=== PATIENT | male | born 1955 | race Caucasian/White ===

== ENCOUNTER 2020-04-08 13:17 | Inpatient (IN) | payer MEDICARE ==
[~2020-04-08] VITALS: Ht 177.8 cm; Wt 99.8 kg
--- NOTE | 2020-04-08 13:17 | NUR ---
PT BIB SELF C/O COUGH/CONGESTION AND BILATERAL LOWER EXTREMITY EDEMA. PT IS AAOX4, NOT IN RESPIRATORY DISTRESS, HOOKED TO HAND PICKER AND O2 AT 2LPM VIA NC. KEPT RESTED AND COMFORTABLE. WILL CONTINUE TO MONITOR.
--- NOTE | 2020-04-08 14:20 | NUR ---
AT BEDSIDE FOR EVAL.
--- NOTE | 2020-04-08 14:30 | NUR ---
IV LINE ESTABLISHED BLOOD DRAWN AND SENT TO LAB.
--- NOTE | 2020-04-08 14:39 | NUR ---
CALLED LAB FOR COVID ANTIGEN KIT.
[2020-04-08 14:43] LABS: BASOPHILS % (AUTO) 0.5 % (0.0-2.0); EOSINOPHILS % (AUTO) 0.6 % (0.0-6.0); HEMATOCRIT 38 % (39-51); HEMOGLOBIN 11.9 g/dL (13.5-17.5); LYMPHOCYTES # (AUTO) 0.8 /CMM (0.8-4.8); LYMPHOCYTES % (AUTO) 12.8 % (20.0-44.0); MEAN CORPUSCULAR HGB CONC 32 g/dl (31.0-36.0); MEAN CORPUSCULAR VOLUME 89 fL (80-96); MONOCYTES # (AUTO) 0.8 /CMM (0.1-1.30); MONOCYTES % (AUTO) 11.6 % (2.0-12.0); NEUTROPHILS # (AUTO) 4.8 /CMM (1.8-8.9); NEUTROPHILS % (AUTO) 74.5 % (43.0-81.0); PLATELET COUNT (AUTO) 343 /CMM (150-450); RED BLOOD CELL COUNT(AUTO) 4.21 MIL/uL (4.5-6.0); WHITE BLOOD COUNT (AUTO) 6.5 K/uL (4.3-11.0)
--- NOTE | 2020-04-08 14:43 | NUR ---
TECH AT BEDSIDE FOR DUPLEX SCAN.
--- NOTE | 2020-04-08 14:52 | NUR ---
COVID SPECIMEN OBTAINED AND SENT TO LAB.
[2020-04-08 14:57] LABS: CALCIUM, SERUM 8.8 mg/dL (8.5-10.1); CREATININE 1.6 mg/dL (0.6-1.3); POTASSIUM 3.3 mmol/L (3.5-5.1)
[2020-04-08 15:09] LABS: ALBUMIN 3.1 g/dL (3.4-5.0); BILIRUBIN,DIRECT 0.4 mg/dL (0.0-0.2); BILIRUBIN,TOTAL 1.1 mg/dL (0.2-1.0); TOTAL PROTEIN, SERUM 7.7 g/dL (6.4-8.2)
--- NOTE | 2020-04-08 15:10 | NUR ---
COMMISSIONS COORDINATOR AT BEDSIDE FOR XRAY.
[2020-04-08 15:16] LABS: D-DIMER 2.11 mg/L(FEU (0.17-0.50)
[2020-04-08] MEDS ORDERED: FUROSEMIDE 40 MG/4 ML VIAL ONE ×2 (15:51→19:43)
[2020-04-08] MEDS ORDERED: POTASSIUM CHLORIDE 20 MEQ TAB.PRT.SR PO ONE (15:51)
[2020-04-08] MEDS ORDERED: POTASSIUM CHLORIDE 10 MEQ TABLET.SA ONE (15:53)
[2020-04-08] MEDS ORDERED: FUROSEMIDE 40 MG/4 ML VIAL IV ONE (16:00)
[2020-04-08] MEDS ORDERED: POTASSIUM CHLORIDE 10 MEQ TABLET.SA PO ONE (16:00)
--- NOTE | 2020-04-08 16:36 | NUR ---
CALLED HOUSE SUP FOR TELE BED
--- NOTE | 2020-04-08 16:51 | NUR ---
PT IS WHEELED TO RADIOLOGY FOR VQ SCAN.
--- NOTE | 2020-04-08 16:52 | NUR ---
room 326-2
[2020-04-08] MEDS ORDERED: METO-357 PO (17:00)
[2020-04-08] MEDS ORDERED: ASPI-1169 PO (17:00)
[2020-04-08] MEDS ORDERED: IBUP200C5 PO (17:00)
[2020-04-08] MEDS ORDERED: FURO-145 PO (17:00)
[2020-04-08] MEDS ORDERED: CARV25TA PO (17:00)
[2020-04-08] MEDS ORDERED: Z GUARD REMEDY 2 OZ OINT TP PRN (17:30)
[2020-04-08] MEDS ORDERED: HYDROCODONE/APAP 5/325MG TABLET PO PRN (17:30)
[2020-04-08] MEDS ORDERED: MAG HYDROX/AL HYDROX/SIMETH 30 ML UDC PO PRN (17:30)
[2020-04-08] MEDS ORDERED: ONDANSETRON HCL/PF 4 MG/2 ML VIAL IVP PRN (17:30)
--- NOTE | 2020-04-08 19:00 | NUR ---
RT AT BEDSIDE FOR ABG.
[2020-04-08] MEDS ORDERED: FUROSEMIDE 20 MG/2 ML VIAL ONE (19:15)
[2020-04-08] MEDS ORDERED: FUROSEMIDE 20 MG/2 ML VIAL IV SCH ×2 (19:30→20:00)
--- NOTE | 2020-04-08 19:36 | NUR ---
REPORT GIVEN TO CHRISTINE PAIZ FOR PAT.
--- NOTE | 2020-04-08 19:47 | NUR ---
PT WILL BE UPGRADED TO ICU; PT WILL BE ON BIPAP. PT SOB AFTER VQ SCAN. O2 SAT 91-92% ON 6L NC
[2020-04-08 20:00] LABS: ABG BASE EXCESS -2.4 mmol/L; ABG PCO2 37.3 mmHg (35.0-45.0); ABG PH 7.391 (7.350-7.450); ABG PO2 130.4 mmHg (75.0-100.0); AaDO2 400.8 mmHg; MetHb 0.3 % (0.0-1.5); O2Hb 96.7 % (94.0-97.0); SITE, ABG Right Radial; VENT MODE, BG 15L NRB
--- NOTE | 2020-04-08 20:29 | NUR ---
REPORT GIVEN TO BAL KING FOR PAT PT TRANSPORTED TO ICU VIA ACLS PROTOCOL
[2020-04-08 21:18] VITALS: BP 124/102
--- NOTE | 2020-04-08 21:30 | NUR ---
BOARD ATTENDANT NOTES GARDUNO CATHETER INSERTED WITH MINIMAL DIFFICULTY, NOTED WITH CLEAR YELLOW URINE VIA GRAVITY. WILL MONITOR CLOSELY
[2020-04-08 22:00] VITALS: BP 154/125
[2020-04-08 23:00] VITALS: BP 157/118
[2020-04-08 23:30] VITALS: BP 163/115
[2020-04-09] VITALS (30 sets, daily range): BP systolic 110–173; BP diastolic 62–127
--- NOTE | 2020-04-09 00:39 | NUR ---
RIB MATCHER AND FITTER NOTES BLOOD PRESSURE REMAINS ELEVATED, LATEST READING 166/114, PREVIOUSLY 173/127. PATIENT NOTED TO BE RESTING COMFORTABLY IN BED ON HI FLOW NC. DR ROBLES PAGED AND NOTIFIED REGARDING BLOOD PRESSURE, WITH NEW ORDER FOR HYDRALAZINE 10MG IV PUSH Q4HR PRN FOR SYSTOLIC BLOOD PRESSURE GREATER THAN 160. ORDER READ BACK FOR CLARIFICATION, WILL CARRY OUT NEW ORDERS
[2020-04-09] MEDS ORDERED: hydrALAZINE HCL IV 20 MG VIAL IV PRN (01:00)
[2020-04-09] MEDS: ZOLPIDEM TARTRATE 5 MG TABLET PO PRN ×2 (01:47→22:18)
[2020-04-09 04:00] LABS: BASOPHILS # (AUTO) 0.1 /CMM (0.0-0.2); BASOPHILS % (AUTO) 0.8 % (0.0-2.0); EOSINOPHILS % (AUTO) 0.2 % (0.0-6.0); HEMATOCRIT 38 % (39-51); HEMOGLOBIN 11.8 g/dL (13.5-17.5); LYMPHOCYTES # (AUTO) 0.8 /CMM (0.8-4.8); MEAN CORPUSCULAR HGB CONC 32 g/dl (31.0-36.0); MEAN CORPUSCULAR VOLUME 88 fL (80-96); MONOCYTES # (AUTO) 0.9 /CMM (0.1-1.30); MONOCYTES % (AUTO) 11.5 % (2.0-12.0); NEUTROPHILS # (AUTO) 6.2 /CMM (1.8-8.9); NEUTROPHILS % (AUTO) 77.5 % (43.0-81.0); PLATELET COUNT (AUTO) 340 /CMM (150-450); RED BLOOD CELL COUNT(AUTO) 4.27 MIL/uL (4.5-6.0)
[2020-04-09 04:10] LABS: CALCIUM, SERUM 8.3 mg/dL (8.5-10.1); CREATININE 1.3 mg/dL (0.6-1.3); PHOSPHORUS 3.6 mg/dL (2.5-4.9); POTASSIUM 3.3 mmol/L (3.5-5.1)
--- NOTE | 2020-04-09 07:26 | NUR ---
WOUND CARE CONSULT: PT SLEEPING AT THIS TIME. PER RN, PT NEEDS REST. REVIEWED CHART, NURSING DOCUMENTATION AND PHOTO WHICH INDICATES RT LOWER LEG SKIN TEAR, PRESENT ON ADMISSION. RECOMMENDATIONS MADE FOR WOUND CARE AND SKIN PROTECTION. DISCUSSED WITH NURSING STAFF. MD IN AGREEMENT WITH PLAN OF CARE.
--- NOTE | 2020-04-09 07:45 | NUR ---
ICU/RN: INITIAL NOTES,AM RECEIVED REPORT FROM NIGHT NURSE. PT SLEEPING, WAKES UP EASILY. TAKEN OFF HI-FLOW, PLACED ON 5LITERS NASAL CANULA, TOLERATING WELL, NO DISTRESS NOTED. SINUS/SINUS TACH ON TELE. PT ALERT, AWAKE, FOLLOWS COMMANDS. GARDUNO CATH IN PLACE, DRAINING YELLOW URINE. LEFT AC PIV PATENT AND INTACT, RIGHT HAND IV REMOVED BY PATIENT ACCIDENTALLY. PT ON CARDIAC DIET, FLUIDS RESTRICTED. ALL NEEDS WILL BE ATTENDED TO, SAFETY MEASURES TAKEN, BED IN LOW POSITION, SIDE RAILS UP, CALL LIGHT WITHIN REACH. WILL CONTINUE CARE.
[2020-04-09] MEDS: ASPIRIN 81 MG TAB.CHEW PO SCH (08:15)
[2020-04-09] MEDS: POTASSIUM CHLORIDE 20 MEQ TAB.PRT.SR PO SCH ×4 (08:15→13:20)
[2020-04-09] MEDS: ENOXAPARIN SODIUM 40 MG/0.4 ML DISP.SYRIN SQ SCH (08:16)
[2020-04-09] MEDS: FUROSEMIDE 40 MG/4 ML VIAL IV SCH ×3 (08:16→16:19)
[2020-04-09] MEDS: CARVEDILOL 12.5 MG TABLET PO SCH ×2 (08:19→22:17)
[2020-04-09 08:37] LABS: THYROID STIMULATING HORMONE 0.749 uIU/mL (0.358-3.74)
--- NOTE | 2020-04-09 14:00 | NUR ---
ICU/RN: REPORT ENDORSED TO CHRISTINE REDDY FOR CONTINUATION OF CARE. PT ALERT, AWAKE, ON 5LITERS NASAL CANULA. NO DISTRESS. ALL NEEDS ATTENDED TO, SAFETY MEASURES TAKEN, BED IN LOW POSITION, SIDE RAILS UP, CALL LIGHT WITHIN REACH.
--- NOTE | 2020-04-09 15:00 | NUR ---
UNIT SUPERVISOR NOTE PATIENT AWAKE, DENIES PAIN OR DISCOMFORT. DENIES SOB AT THIS TIME. ON 5LPM O2 VIA NC. TOLERATING WELL. STATES " I FEEL SO MUCH BETTER THAN YESTERDAY." LUNCH TRAY AT BEDSIDE. WILL CONTINUE TO MONITOR.
--- NOTE | 2020-04-09 16:15 | NUR ---
RUSSIAN LANGUAGE PROFESSOR NOTE SEEN AND EXAMINED BY DR ONEAL
[2020-04-09 18:21] LABS: CREATININE, URINE 81.8 MG/DL (30.0-125.0); URINE TOTAL PROTEIN 41.7 mg/dL (0-11.9)
[2020-04-09 18:25] LABS: APPEARANCE,URINE CLEAR (CLEAR); BILIRUBIN,URINE NEGATIVE (NEGATIVE); BLOOD, URINE LARGE Ery/uL (NEGATIVE); COLOR,URINE YELLOW (YELLOW); KETONES,URINE NEGATIVE (NEGATIVE); LEUKOCYTE ESTERASE ,URINE NEGATIVE (NEGATIVE); NITRITE, URINE NEGATIVE (NEGATIVE); PH,URINE 5.5 (5.0-8.0); PROTEIN,URINE TRACE mg/dl (NEGATIVE); UGLUCOSE NEGATIVE (NEGATIVE)
--- NOTE | 2020-04-09 18:34 | NUR ---
RASPER MACHINE OPERATOR CLOSING NOTE DUE MEDS GIVEN. PATIENT SITTING AT BEDSIDE CHAIR. PATIENT ABLE TO AMBULATE INDEPENDENTLY. CALL LIGHT WITHIN EASY REACH. PATIENT PROVIDED SELF ADLS AND BRUSHED HIS TEETH. LINENS CHANGED. NO C/O SOB. DENIES PAIN OR DISCOMFORT. WILL ENDORSE CONTINUITY OF CARE TO PM NURSE.
[2020-04-09 18:36] LABS: BACTERIA,URINE 1+ /HPF (None Seen); SQUAMOUS EPITHELIAL CELL,UR 0-2 /HPF (None Seen)
[2020-04-09 18:55] LABS: EOSINOPHIL,URINE None Seen
--- NOTE | 2020-04-09 19:30 | NUR ---
RN NOTES RECEIVE PATIENT SITTING ON THE BEDSIDE COMMODE. AOX4, VERBALY RESPONSIVE. WITH O2 5LPM VIA NC SATURATING WELL. DENIES SOB , EPISODE OF COUGHING STILL NOTED. AFEBRILE. VSS WITH NO PRESSORS. DEIES PAIN. SR ON TELE MONITOR. IV SITE ON LAC G 18 HL INTACT AND FLUSHED WELL. BLE EDEMA NOTED WITH SLIGHT WEAKNESSES DUE TO SWOLLEN LEGS. GARDUNO CATH KEPT OFF FROM THE FLOOR DRAINED VIA GRAVITY WITH ADEQ AMT. PATIENT IS BEEN TAKING LASIX DUE TO CHF. KEPT PT CLEAN AND DRY. MINIMAL ASSISTANCE PROVIDED FOR SAFETY. CALL LIGHT KEPT WITHIN EASY REACH. INSTRUCTION HOW TO USED PROVIDED. WILL CONTINUE TO MONITOR.
[2020-04-10] VITALS (15 sets, daily range): BP systolic 91–146; BP diastolic 29–92
[2020-04-10 03:56] LABS: BASOPHILS % (AUTO) 0.6 % (0.0-2.0); HEMATOCRIT 35 % (39-51); HEMOGLOBIN 10.9 g/dL (13.5-17.5); LYMPHOCYTES # (AUTO) 0.7 /CMM (0.8-4.8); LYMPHOCYTES % (AUTO) 8.7 % (20.0-44.0); MEAN CORPUSCULAR HGB CONC 31 g/dl (31.0-36.0); MEAN CORPUSCULAR VOLUME 89 fL (80-96); MONOCYTES # (AUTO) 1.1 /CMM (0.1-1.30); MONOCYTES % (AUTO) 12.9 % (2.0-12.0); NEUTROPHILS # (AUTO) 6.4 /CMM (1.8-8.9); NEUTROPHILS % (AUTO) 75.8 % (43.0-81.0); PLATELET COUNT (AUTO) 295 /CMM (150-450); RED BLOOD CELL COUNT(AUTO) 3.92 MIL/uL (4.5-6.0); WHITE BLOOD COUNT (AUTO) 8.4 K/uL (4.3-11.0)
[2020-04-10 04:12] LABS: ALBUMIN 2.4 g/dL (3.4-5.0); BILIRUBIN,TOTAL 0.7 mg/dL (0.2-1.0); CALCIUM, SERUM 8.2 mg/dL (8.5-10.1); CREATININE 1.5 mg/dL (0.6-1.3); PHOSPHORUS 3.1 mg/dL (2.5-4.9); POTASSIUM 3.6 mmol/L (3.5-5.1); TOTAL PROTEIN, SERUM 6.3 g/dL (6.4-8.2)
--- NOTE | 2020-04-10 06:39 | NUR ---
RN NOTES PATIENT ASLEEP WELL AT NIGHT TOLERATED O2 @ 5LPM VIA NC SATURATING WELL SATURATION 98%. AFEBRILE. VSS WITHOUT PRESSORS. BREATHING EVEN AND UNLABORED, DENIES PAIN. WITH ADEQUATE URINE OUTPUT FROM GARDUNO.ALL NEEDS ATTENDED. KEPT PT CLEAN AND DRY.
--- NOTE | 2020-04-10 07:55 | NUR ---
ICU/RN: INITIAL NOTES,AM RECEIVED REPORT FROM NIGHT NURSE. PT AWAKE, ALERT, FOLLOWING COMMANDS. ON NASAL CANULA, TOLERATING WELL, NO DISTRESS NOTED. SINUS ON TELE. GARDUNO CATH IN PLACE, DRAINING YELLOW URINE. LEFT AC PIV PATENT AND INTACT. PT ON CARDIAC DIET, FLUIDS RESTRICTED. ALL NEEDS WILL BE ATTENDED TO, SAFETY MEASURES TAKEN, BED IN LOW POSITION, SIDE RAILS UP, CALL LIGHT WITHIN REACH. WILL CONTINUE CARE. DOWNGRADE ORDERS RECEIVED. PT SITTING COMFORTABLY ON BEDSIDE CHAIR.
[2020-04-10] MEDS: ASPIRIN 81 MG TAB.CHEW PO SCH (08:17)
[2020-04-10] MEDS: CARVEDILOL 12.5 MG TABLET PO SCH ×2 (08:17→21:47)
[2020-04-10] MEDS: ENOXAPARIN SODIUM 40 MG/0.4 ML DISP.SYRIN SQ SCH (08:18)
[2020-04-10] MEDS: FUROSEMIDE 40 MG/4 ML VIAL IV SCH ×3 (08:20→17:50)
[2020-04-10] MEDS: hydrALAZINE HCL 50 MG TABLET PO SCH ×3 (08:21→18:23)
[2020-04-10] MEDS: POTASSIUM CHLORIDE 20 MEQ TAB.PRT.SR PO SCH ×3 (08:35→11:27)
[2020-04-10] MEDS: ISOSORBIDE DINITRATE (20MG) 20 MG TABLET PO SCH ×2 (08:36→11:24)
--- NOTE | 2020-04-10 12:45 | NUR ---
ICU/RN: PT TRANSFERRED TO [facility]. BEDSIDE REPORT ENDORSED TO RENETTA RN. ALL BELONGINGS SENT WITH PT. ALL NEEDS ATTENDED TO, SAFETY MEASURES TAKEN, BED IN LOW POSITION, SIDE RAILS UP, CALL LIGHT WITHIN REACH. GARDUNO CATH IN PLACE, DRAINING YELLOW URINE.
--- NOTE | 2020-04-10 13:00 | NUR ---
ms rn received a new transfer from icu, patient is awake,alert,oriented x4,not in any form of distress, respirations even and unlabored,no sob noted, lungs are clear, abdomen soft,positive bowel sounds,denies pain at this time,will monitor patient.
--- NOTE | 2020-04-10 13:30 | NUR ---
ms woody was seen by marion gaona w/ orders made and carried out.
[2020-04-10] MEDS: SOD FERRIC GLUC 125 MG in IV NS 0.9% 100 ML IV SCH (15:14)
--- NOTE | 2020-04-10 17:58 | NUR ---
ms mckay on bed, w/ orders made and carried out.
--- NOTE | 2020-04-10 18:38 | NUR ---
ms rn patient's room change to 320-1, at this time.
--- NOTE | 2020-04-10 20:00 | NUR ---
MICROSOFT DEVELOPER OPENING NOTE: Patient in bed, awake and alert. Make needs known. Patient denies pain or discomfort at this time. On cardiac monitoring, sinus rhythm, IV Access on LAC 18g, patent, no redness, or infiltration. Chapa catheter noted, patient, draining clear yellow output. Safety precaution in place, bed in the lowest level, bed is locked, alarm is on, side rails x2 are up, and call light is within reach. Will continue to monitor.
[2020-04-10] MEDS: ZOLPIDEM TARTRATE 5 MG TABLET PO PRN (23:56)
--- NOTE | 2020-04-10 23:56 | NUR ---
DOCUMENT PREPARATION SPECIALIST NOTE: Patient complains of not being able to sleep. Administered PRN Ambien per MD order. Will reassess and follow up.
[2020-04-11] VITALS (7 sets, daily range): BP systolic 106–144; BP diastolic 60–96
--- NOTE | 2020-04-11 00:56 | NUR ---
VP LAB NOTE: Reassess ambien administration. Patient in bed sleeping comfortably. Medication effective. Will continue to monitor.
[2020-04-11 05:08] LABS: PTH, INTACT 61 pg/mL (15-65)
--- NOTE | 2020-04-11 06:30 | NUR ---
RESIDENTIAL LAWN SPECIALIST CLOSING NOTE: Patient in bed sleeping comfortably but easily aroused. Patient is breathing well, no SOB, or respiratory distress noted. Safety precaution in place, bed in the lowest level, bed is locked, alarm is on, side rails x2 are up, and call light is within reach. Will Endorse to next shift.
[2020-04-11 07:35] LABS: BASOPHILS % (AUTO) 0.6 % (0.0-2.0); EOSINOPHILS % (AUTO) 3.1 % (0.0-6.0); HEMATOCRIT 38 % (39-51); HEMOGLOBIN 11.7 g/dL (13.5-17.5); LYMPHOCYTES # (AUTO) 0.7 /CMM (0.8-4.8); LYMPHOCYTES % (AUTO) 9.1 % (20.0-44.0); MEAN CORPUSCULAR HGB CONC 31 g/dl (31.0-36.0); MEAN CORPUSCULAR VOLUME 89 fL (80-96); NEUTROPHILS # (AUTO) 5.9 /CMM (1.8-8.9); NEUTROPHILS % (AUTO) 74.2 % (43.0-81.0); PLATELET COUNT (AUTO) 318 /CMM (150-450); RED BLOOD CELL COUNT(AUTO) 4.27 MIL/uL (4.5-6.0); WHITE BLOOD COUNT (AUTO) 7.9 K/uL (4.3-11.0)
[2020-04-11 07:56] LABS: ALBUMIN 2.7 g/dL (3.4-5.0); BILIRUBIN,TOTAL 0.6 mg/dL (0.2-1.0); CALCIUM, SERUM 8.6 mg/dL (8.5-10.1); CREATININE 1.4 mg/dL (0.6-1.3); MAGNESIUM 2.1 mg/dL (1.8-2.4); PHOSPHORUS 2.6 mg/dL (2.5-4.9); POTASSIUM 3.5 mmol/L (3.5-5.1); TOTAL PROTEIN, SERUM 7.3 g/dL (6.4-8.2)
--- NOTE | 2020-04-11 08:00 | NUR ---
tele air cargo specialist supervisor: initial assessment received pt in bed awake, a/ox4. pt c/o balderas catheter bothering him. assessed cath, no obstruction noted. f/c draining well to gravity. will continue to monitor.
[2020-04-11] MEDS: ASPIRIN 81 MG TAB.CHEW PO SCH (08:17)
[2020-04-11] MEDS: ISOSORBIDE DINITRATE (20MG) 20 MG TABLET PO SCH ×2 (08:19→16:52)
[2020-04-11] MEDS: CARVEDILOL 12.5 MG TABLET PO SCH ×2 (08:19→21:29)
[2020-04-11] MEDS: ENOXAPARIN SODIUM 40 MG/0.4 ML DISP.SYRIN SQ SCH (08:20)
[2020-04-11] MEDS: hydrALAZINE HCL 50 MG TABLET PO SCH ×3 (08:20→16:52)
[2020-04-11] MEDS ORDERED: NITROGLYCERIN 0.4 MG/TAB BOTTLE SL ONE (09:00)
--- NOTE | 2020-04-11 09:15 | NUR ---
tele king maker: notes pt still verbalizing his balderas catheter is bothering, pt keeps pushing. marion tovar (acnp) notified and made aware with order to d'c balderas. pt made aware and removed balderas catheter, eliceo well. pt voided after balderas cath removed. pt had an accident (bowel movement) in bed. kept clean and dry by doctor of dental surgery. will continue to monitor.
[2020-04-11] MEDS ORDERED: IOHEXOL-350 100 ML VIAL IV ONE (09:29)
[2020-04-11] MEDS ORDERED: IV NS 0.9% 250 ML IV ONE (09:30)
--- NOTE | 2020-04-11 09:30 | NUR ---
tele film historian: cardio f/u seen by dr. duron with orders. orders acknowledge. iv removed to left ac due to leaking. attempted to insert new one, but unsuccessful. claudine (rn) made aware and will pick up and delivery driver pt in a few minutes for ct angio. pt made aware and consent signed and place in chart. pt verbalized understanding.
--- NOTE | 2020-04-11 09:40 | NUR ---
tele wood web weaving machine operator: notes tele removed, pt down for ct angio accompanied by 2 staff via wheelchair with chart and consent.
[2020-04-11] MEDS ORDERED: METOPROLOL TARTRATE INJ 5 MG/5 ML AMPUL ONE ×2 (09:56→10:22)
[2020-04-11] MEDS: POTASSIUM CHLORIDE 20 MEQ TAB.PRT.SR PO SCH ×5 (10:00→13:54)
[2020-04-11] MEDS: METOPROLOL TARTRATE INJ 5 MG/5 ML AMPUL IVP PRN ×5 (10:00→10:20)
--- NOTE | 2020-04-11 10:14 | NUR ---
WOUND CARE: ATTEMPTED TO SEE PT FOR SKIN ASSESSMENT BUT PT IS OFF UNIT AT THIS TIME. DISCUSSED SKIN PROTECTION AND WOUND CARE RECOMMENDATIONS WITH NURSING STAFF. WILL SEE PT PT CONDITION PERMITS.
[2020-04-11] MEDS: FUROSEMIDE 40 MG/4 ML VIAL IV SCH ×3 (11:17→17:07)
--- NOTE | 2020-04-11 12:22 | NUR ---
m/s refueling ramp supervisor: notes kdur 20meq dropped from [employer], pharmacist notified and made aware and will re-insert.
[2020-04-11 14:08] LABS: *SPE A/G RATIO 0.9 (0.7-1.7); *SPE ALBUMIN 2.8 g/dL (2.9-4.4); *SPE ALPHA-1-GLOBULIN 0.2 g/dL (0.0-0.4); *SPE ALPHA-2-GLOBULIN 0.6 g/dL (0.4-1.0); *SPE GLOBULIN, TOTAL 3.1 g/dL (2.2-3.9); *SPE M-SPIKE Not Observed g/dL (Not Observed); *SPEGAMMA GLOBULIN 1.4 g/dL (0.4-1.8)
[2020-04-11] MEDS: SOD FERRIC GLUC 125 MG in IV NS 0.9% 100 ML IV SCH (14:21)
--- NOTE | 2020-04-11 18:30 | NUR ---
tele septic technician: vascular consult seen by dr. miller with order to obtain consent for icd. pt aware, but wants to discuss procedure more with dr. miller tomorrow. pt doesn't want to sign at this time. needs attended. no distress noted. will continue to monitor.
--- NOTE | 2020-04-11 19:10 | NUR ---
tele press feeder: notes report given to mann (woody) for continuity of care.
--- NOTE | 2020-04-11 20:55 | NUR ---
MS/TELE/RN AT 1930, RECEIVED PATIENT SITTING AT EDGE OF BED AO X 4, COMFORTABLE, NO C/O PAIN, NO DISTRESS NOTED. PLAN OF CARE DISCUSSED, RE: ICD PLACEMENT IN A.M., DOES NOT WANT TO SIGN THE CONSENT AT THIS TIME HE WANTS TO TALK TO THE DOCTOR FIRST BEFORE SIGNING THE CONSENT. WILL MONITOR.
[2020-04-12] VITALS (7 sets, daily range): BP systolic 107–145; BP diastolic 68–103
--- NOTE | 2020-04-12 06:09 | NUR ---
MS/TELE/RN PATIENT IS SLEEPING, APPEAR COMFORTABLE, NO SIGNS OF DISTRESS NOTED, CALL LIGHT IN REACH, NPO POST MIDNIGHT FOR ICD PLACEMENT TODAY, GOOD SLEEP NOTED, THE WHOLE SHIFT, ALL NEEDS ATTENDED AT THIS TIME, WILL CONTINUE TO MONITOR.
[2020-04-12 06:21] LABS: BASOPHILS # (AUTO) 0.1 /CMM (0.0-0.2); BASOPHILS % (AUTO) 0.9 % (0.0-2.0); EOSINOPHILS % (AUTO) 2.1 % (0.0-6.0); HEMATOCRIT 34 % (39-51); HEMOGLOBIN 10.5 g/dL (13.5-17.5); LYMPHOCYTES # (AUTO) 0.6 /CMM (0.8-4.8); LYMPHOCYTES % (AUTO) 9.5 % (20.0-44.0); MEAN CORPUSCULAR HGB CONC 31 g/dl (31.0-36.0); MEAN CORPUSCULAR VOLUME 89 fL (80-96); MONOCYTES % (AUTO) 15.4 % (2.0-12.0); NEUTROPHILS # (AUTO) 4.8 /CMM (1.8-8.9); NEUTROPHILS % (AUTO) 72.1 % (43.0-81.0); PLATELET COUNT (AUTO) 289 /CMM (150-450); RED BLOOD CELL COUNT(AUTO) 3.81 MIL/uL (4.5-6.0); WHITE BLOOD COUNT (AUTO) 6.7 K/uL (4.3-11.0)
[2020-04-12 07:22] LABS: ALBUMIN 2.5 g/dL (3.4-5.0); BILIRUBIN,TOTAL 0.6 mg/dL (0.2-1.0); CALCIUM, SERUM 8.3 mg/dL (8.5-10.1); CREATININE 1.3 mg/dL (0.6-1.3); MAGNESIUM 2.1 mg/dL (1.8-2.4); PHOSPHORUS 2.7 mg/dL (2.5-4.9); POTASSIUM 3.5 mmol/L (3.5-5.1); TOTAL PROTEIN, SERUM 6.6 g/dL (6.4-8.2)
--- NOTE | 2020-04-12 07:35 | NUR ---
WAREHOUSE GUARD NOTES RECEIVED PT IN BED, AWAKE, A/O X4. TOLERATING RA, WITH NO ACUTE RESPIRATORY DISTRESS NOTED. PT ON TELEMONITORING WITH SR 87, DENIES CHEST PAIN. PT DENIES ANY PAIN AT THIS TIME, BUT CONCERNED ABOUT HIS PHLEM BEING EXPECTORATED, RN PROVIDED EMESIS BAG. PT AWARE REGARDING ICD PLACEMENT WITH DR. PATEL TODAY, BUT PREFERS TO TALK TO THE MD BEFORE SIGNING CONSENTS, WILL FOLLOW UP WITH MD. PT DENIES ANY OTHER CONCERNS AT THIS TIME. PIV LAC G18, FLUSHED WITH NS, INTACT AND OPERATIONAL. PT KEPT COMFORTABLE IN BED. HOB ELEVATED. CALL LIGHT KEPT WITHIN REACH. PT'S BED IN LOWEST, LOCKED POSITION WITH SR X2. WILL CONTINUE PLAN OF CARE.
[2020-04-12] MEDS: POTASSIUM CHLORIDE 20 MEQ TAB.PRT.SR PO SCH ×3 (08:00→11:01)
[2020-04-12] MEDS: ENOXAPARIN SODIUM 40 MG/0.4 ML DISP.SYRIN SQ SCH (08:00)
[2020-04-12] MEDS: FUROSEMIDE 40 MG/4 ML VIAL IV SCH ×3 (08:00→16:41)
[2020-04-12] MEDS ORDERED: LIDOCAINE 1% INJ 50 ML MDV IJ ONE (08:40)
[2020-04-12] MEDS ORDERED: IOHEXOL 240MG/ML 0 ML IV ONE (08:41)
[2020-04-12] MEDS ORDERED: ANESTHESIA TRAY IN PYXIS 1 EA TRAY MC ONE (08:41)
--- NOTE | 2020-04-12 08:53 | NUR ---
RN NOTES RN VERIFIED WITH RENZO KING AND INFORMED REGARDING CURRENT BP OF 145/103 HR 86, TO SKIP MORNING MEDICINES INCLUDING BP MEDS AND ONE TIME DOSE LASIX IV. AAND TO PUT PT DOWN NOW. PT MADE AWARE WELL.
[2020-04-12] MEDS ORDERED: BUPIVACAINE 0.25% 75 MG/30 ML VIAL ONE (08:55)
[2020-04-12] MEDS ORDERED: MIDAZOLAM HCL 2 MG/2ML VIAL ONE (08:56)
[2020-04-12] MEDS ORDERED: KETAMINE HCL (500MG/10ML) 50 MG/ML VIAL ONE (08:56)
[2020-04-12] MEDS ORDERED: FLUMAZENIL 0.5 MG VIAL ONE (08:57)
--- NOTE | 2020-04-12 08:59 | NUR ---
RN NOTES PT LEFT THE UNIT VIA BED GOING TO OR. RENZO/RN AT BEDSIDE STATED OKAY TO GIVE ALL MORNING MEDS WHEN PT COMES BACK. ALSO ANESTHESIOLOGIST AWARE OF PT'S CURRENT BP.
[2020-04-12] MEDS: hydrALAZINE HCL 50 MG TABLET PO SCH ×3 (09:00→16:41)
--- NOTE | 2020-04-12 10:50 | NUR ---
RN NOTES PT CAME BACK FROM ICD PLACEMENT PROCEDURE WITH DR. PATEL. VS TAKEN AND RECORDED. PT DENIES ANY PAIN OR DISCOMFORT AT THIS TIME. WILL CONTINUE TO MONITOR.
[2020-04-12] MEDS: ISOSORBIDE DINITRATE (20MG) 20 MG TABLET PO SCH ×2 (10:59→16:42)
[2020-04-12] MEDS: CARVEDILOL 12.5 MG TABLET PO SCH ×2 (11:00→21:16)
[2020-04-12] MEDS: ASPIRIN 81 MG TAB.CHEW PO SCH (11:00)
--- NOTE | 2020-04-12 11:40 | NUR ---
RN NOTES UNABLE TO GIVE KCL 20MEQ DOSE AT 10AM, PT WAS IN THE PROCEDURE WITH DR. FORD. MISSED DOSE RE-ORDERED. WILL CONTINUE TO MONITOR.
[2020-04-12] MEDS ORDERED: POTASSIUM CHLORIDE 20 MEQ TAB.PRT.SR PO ONE (12:00)
[2020-04-12] MEDS: SOD FERRIC GLUC 125 MG in IV NS 0.9% 100 ML IV SCH (15:10)
--- NOTE | 2020-04-12 18:34 | NUR ---
RN NOTES PT REMAINS IN BED, AWAKE, A/O X4. TOLERATING RA, WITH NO ACUTE RESPIRATORY DISTRESS NOTED. PT DENIES ANY PAIN OR DISCOMFORT AT THIS TIME. PIV RHAND G20 SL, FLUSHED WITH NS, INTACT AND OPERATIONAL. PT KEPT COMFORTABLE IN BED. ALL NEEDS AND CARE ATTENDED. HOB ELEVATED. CALL LIGHT KEPT WITHIN REACH. PT'S BED IN LOWEST, LOCKED POSITION WITH SR X2. WILL ENDORSE TO INCOMING NIGHT NURSE FOR PAT.
--- NOTE | 2020-04-12 19:30 | NUR ---
LICENSE REGISTRATION EXAMINER RECEIVE PT IN BED A/O X 4, SR 90. STABLE AND NOT IN RESPIRATORY DISTRESS, NO CHEST PAIN, SAFETY MEASURES AT ALL TIMES. WILL CONT TO MONITOR
[2020-04-12] MEDS: MAGNESIUM HYDROXIDE 30 ML UDC PO PRN (21:20)
[2020-04-13] VITALS: BP 119/80
[2020-04-13] MEDS: ZOLPIDEM TARTRATE 5 MG TABLET PO PRN (01:56)
[2020-04-13 04:00] VITALS: BP 133/85
--- NOTE | 2020-04-13 05:57 | NUR ---
SENIOR EXECUTIVE COMPENSATION ANALYST PT WALKING IN THE HALLWAY WITHOUT DIFFICULTY, IN NO APPARENT DISTRESS, SLEPT WELL 8 HOURS. SR 84'S HR IN TELE MONITOR, NO COMPLAIN OF CHEST PAIN, NEEDS ATTENDED AND ANTICIPATED, KEPT CLEAN, DRY AND COMFORTABLE AT ALL TIMES. AM CARE RENDERED, S/P ICD (LUCW) DRESSING INTACT CLEAN WITHOUT S/S OF BLEEDING. SAFETY MEASURES IN PLACE. WILL ENDORSE TO NEXT SHIFT.
[2020-04-13 07:23] LABS: BASOPHILS # (AUTO) 0.1 /CMM (0.0-0.2); BASOPHILS % (AUTO) 1.1 % (0.0-2.0); EOSINOPHILS % (AUTO) 1.5 % (0.0-6.0); HEMATOCRIT 33 % (39-51); HEMOGLOBIN 10.5 g/dL (13.5-17.5); LYMPHOCYTES # (AUTO) 0.6 /CMM (0.8-4.8); LYMPHOCYTES % (AUTO) 9.5 % (20.0-44.0); MEAN CORPUSCULAR HGB CONC 32 g/dl (31.0-36.0); MEAN CORPUSCULAR VOLUME 88 fL (80-96); MONOCYTES % (AUTO) 14.3 % (2.0-12.0); NEUTROPHILS # (AUTO) 4.9 /CMM (1.8-8.9); NEUTROPHILS % (AUTO) 73.6 % (43.0-81.0); PLATELET COUNT (AUTO) 287 /CMM (150-450); RED BLOOD CELL COUNT(AUTO) 3.78 MIL/uL (4.5-6.0); WHITE BLOOD COUNT (AUTO) 6.6 K/uL (4.3-11.0)
--- NOTE | 2020-04-13 07:43 | NUR ---
Patient awake , alert and oriented x3. NSR on tele, HR 89. ICD dressing intact and patent . Patient denies pain. On room air saturation above 95%. Safety precautions in place and call light within reach. Will continue to monitor
[2020-04-13 08:00] VITALS: BP 120/84
[2020-04-13 08:15] LABS: ALBUMIN 2.6 g/dL (3.4-5.0); BILIRUBIN,TOTAL 0.5 mg/dL (0.2-1.0); CALCIUM, SERUM 8.1 mg/dL (8.5-10.1); CREATININE 1.6 mg/dL (0.6-1.3); MAGNESIUM 2.2 mg/dL (1.8-2.4); PHOSPHORUS 3.1 mg/dL (2.5-4.9); POTASSIUM 3.9 mmol/L (3.5-5.1); TOTAL PROTEIN, SERUM 6.8 g/dL (6.4-8.2)
[2020-04-13 08:19] VITALS: BP 120/84
[2020-04-13] MEDS: FUROSEMIDE 40 MG TABLET PO SCH (08:24)
[2020-04-13] MEDS: ISOSORBIDE DINITRATE (20MG) 20 MG TABLET PO SCH ×2 (08:24→16:28)
[2020-04-13] MEDS: ASPIRIN 81 MG TAB.CHEW PO SCH (08:24)
[2020-04-13] MEDS: POTASSIUM CHLORIDE 20 MEQ TAB.PRT.SR PO SCH (08:24)
[2020-04-13] MEDS: CARVEDILOL 12.5 MG TABLET PO SCH ×2 (08:25→20:52)
[2020-04-13] MEDS: hydrALAZINE HCL 50 MG TABLET PO SCH ×2 (08:26→16:27)
[2020-04-13] MEDS: ACETAMINOPHEN 325 MG TABLET PO PRN ×2 (08:28→19:46)
[2020-04-13] MEDS: ENOXAPARIN SODIUM 40 MG/0.4 ML DISP.SYRIN SQ SCH (08:33)
--- NOTE | 2020-04-13 09:10 | NUR ---
Patient awake , alert and oriented x3. NSR on tele, HR 90. No SOB noted. Patient complain of headache 4/10 and Tylenol administrated. will continue to monitor.
--- NOTE | 2020-04-13 12:13 | NUR ---
Patient noted with mild SOB. Lien BUILDING PERFORMANCE SPECIALIST notified
[2020-04-13] MEDS ORDERED: FUROSEMIDE 40 MG/4 ML VIAL IV ONE (13:00)
[2020-04-13] MEDS: SOD FERRIC GLUC 125 MG in IV NS 0.9% 100 ML IV SCH (14:13)
[2020-04-13 16:00] VITALS: BP 146/100
--- NOTE | 2020-04-13 16:10 | NUR ---
Patient walking around nursing station w/out oxygen and pulse oximetry on. Mild SOB noted , oxygenation dropping to 94%. At rest oxygenation on room air is 97%. Lien RIGGNIS notified
[2020-04-13 16:28] VITALS: BP 146/100
[2020-04-13] MEDS: MAGNESIUM HYDROXIDE 30 ML UDC PO PRN (18:36)
--- NOTE | 2020-04-13 18:48 | NUR ---
Patient resting in bed , on room air at this time tolerating well. All needs attended. Patient kept comfortable at all times. Safety precautions in place, call light within reach. Will endorse to next shift nurse for PAT
--- NOTE | 2020-04-13 19:45 | NUR ---
MS RN NOTES PATIENT IN BED, LAYING DOWN, ALERT AND ORIENTED X 4. BREATHING EVEN AND UNLABORED ON 2L NC. SHOWS NO SIGNS OF ACUTE RESPIRATORY DISTRESS, NO ACUTE PAIN. IV ON R HAND 20G ITS CLEAN DRY AND INTACT. SHOWS NO SIGNS OF INFILTRATION, NO REDNESS. SAFETY PRECAUTIONS IN PLACE. BED IN LOWEST POSITION, LOCKED, AND CALL LIGHT KEPT WITHIN REACH. WILL CONTINUE TO MONITOR.
[2020-04-14] MEDS: ACETAMINOPHEN 325 MG TABLET PO PRN (02:26)
--- NOTE | 2020-04-14 06:47 | NUR ---
MS RN NOTES PATIENT IN BED, ASLEEP, ALERT AND ORIENTED X 4. BREATHING EVEN AND UNLABORED ON 2L NC. SHOWS NO SIGNS OF ACUTE RESPIRATORY DISTRESS, NO ACUTE PAIN. IV ON R HAND 20G ITS CLEAN DRY AND INTACT. SHOWS NO SIGNS OF INFILTRATION, NO REDNESS. SAFETY PRECAUTIONS IN PLACE. ALL DUE MEDICATIONS GIVEN. BED IN LOWEST POSITION, LOCKED, AND CALL LIGHT KEPT WITHIN REACH. WILL ENDORSE TO ONCOMING NURSE.
[2020-04-14 07:02] LABS: CALCIUM, SERUM 8.6 mg/dL (8.5-10.1); CREATININE 1.2 mg/dL (0.6-1.3); POTASSIUM 3.7 mmol/L (3.5-5.1)
--- NOTE | 2020-04-14 08:00 | NUR ---
MS RN NOTES PATIENT IN BED RESTING NO SOB OR ACUTE DISTRESS NOTED. PATIENT ALERT, ORIENTED X3. PERIPHERAL IV INTACT PATENT. SAFETY MEASURES IN PLACE. WILL CONTINUE TO MONITOR.
[2020-04-14] MEDS: ASPIRIN 81 MG TAB.CHEW PO SCH (08:46)
[2020-04-14] MEDS: FUROSEMIDE 40 MG TABLET PO SCH (08:46)
[2020-04-14] MEDS: CARVEDILOL 12.5 MG TABLET PO SCH ×2 (08:47→21:00)
[2020-04-14] MEDS: ISOSORBIDE DINITRATE (20MG) 20 MG TABLET PO SCH ×2 (08:47→16:52)
[2020-04-14] MEDS: POTASSIUM CHLORIDE 20 MEQ TAB.PRT.SR PO SCH (08:47)
[2020-04-14] MEDS: hydrALAZINE HCL 50 MG TABLET PO SCH ×2 (08:48→16:52)
[2020-04-14] MEDS: ENOXAPARIN SODIUM 40 MG/0.4 ML DISP.SYRIN SQ SCH (08:51)
[2020-04-14 08:52] VITALS: BP 144/100
--- NOTE | 2020-04-14 13:00 | NUR ---
MS RN NOTES PATIENT ON ROOM AIR SATURATING 96%.
[2020-04-14] MEDS: DOCUSATE SODIUM 100 MG CAPSULE PO SCH ×2 (13:07→21:29)
--- NOTE | 2020-04-14 14:00 | NUR ---
MS RN NOTES PATIENT SEEN AMBULATING IN THE HALLWAY ON ROOM AIR.
[2020-04-14] MEDS: SOD FERRIC GLUC 125 MG in IV NS 0.9% 100 ML IV SCH (15:06)
--- NOTE | 2020-04-14 15:07 | NUR ---
MS RN NOTES PROVIDED PATIENT WITH INFORMATION OF DR. FORD AND DR. CABRAL FOR FOLLOW UP APPOINTMENT.
[2020-04-14 16:59] VITALS: BP 127/90
--- NOTE | 2020-04-14 18:49 | NUR ---
MS RN NOTES PATIENT IN BED AWAKE IN STABLE CONDITION. NO ACUTE CHANGES NOTED DURING AM SHIFT. ALL DUE MEDICATIONS ADMINISTERED. ALL NEEDS MET. WILL ENDORSE CARE TO PM SHIFT.
[2020-04-14 20:00] VITALS: BP 113/69
--- NOTE | 2020-04-14 20:00 | NUR ---
MS RN NOTE: Patient in bed sleeping comfortably. Patient is currently on room air and breathing well. NO SOB or respiratory distress is noted. Breathing equal and unlabored. PRN 2L nasal canula on side of bed. Noted IV access on right hand, 20g, flushes well, patent, no redness, or infiltration. S/P ICD on left upper chest wall, dressing is dry and intact. Safety precaution is in place, bed is in the lowest level, bed is locked, alarm is on, side rails x2 are up, and call light is within reach. Will continue to monitor.
--- NOTE | 2020-04-14 21:31 | NUR ---
MS RN NOTE: Patient BP 113/69, hold medication to prevent hypotension episode. Will continue to monitor.
--- NOTE | 2020-04-15 06:50 | NUR ---
MS RN CLOSING NOTE: Patient in bed sleeping comfortably. No SOB or respiratory distress noted. Safety precaution is in place, bed is in the lowest level, bed is locked, side rails x2 are up, and call light is within reach. Will endorse to next shift.
--- NOTE | 2020-04-15 07:30 | NUR ---
MS/RN OPENING NOTES Received patient resting in bed, A&O x 4. Denies any pain and discomfort at this time. Breathing even and non-labored on RA, no SOB noted. No respiratory or cardiac distress noted. IV access on R hand #20 gauge, patent and intact, and flushing well. No infection, infiltration, or bleeding noted on site. Sensation from all peripheral extremities intact. Fall precautions maintained. Instructed pt to use call light when in need of assistance. 800 ml fluid restriction maintained. Will continue with current plan of care.
[2020-04-15 08:00] VITALS: BP 148/97
[2020-04-15] MEDS: ASPIRIN 81 MG TAB.CHEW PO SCH (08:37)
[2020-04-15] MEDS: DOCUSATE SODIUM 100 MG CAPSULE PO SCH (08:38)
[2020-04-15] MEDS: FUROSEMIDE 40 MG TABLET PO SCH (08:38)
[2020-04-15] MEDS: POTASSIUM CHLORIDE 20 MEQ TAB.PRT.SR PO SCH (08:38)
[2020-04-15] MEDS: ISOSORBIDE DINITRATE (20MG) 20 MG TABLET PO SCH (08:39)
[2020-04-15] MEDS: CARVEDILOL 12.5 MG TABLET PO SCH (08:39)
[2020-04-15 08:40] VITALS: BP 148/97
[2020-04-15] MEDS: hydrALAZINE HCL 50 MG TABLET PO SCH (08:40)
[2020-04-15] MEDS: ENOXAPARIN SODIUM 40 MG/0.4 ML DISP.SYRIN SQ SCH (08:40)
--- NOTE | 2020-04-15 11:09 | NUR ---
MS/RN NOTE Spoke with Daniela, onsite case manager, regarding patient's in-home oxygen therapy, states patient does not qualify since pt's oxygen levels during hospitalization has been above 94% on RA.
--- NOTE | 2020-04-15 13:30 | NUR ---
MS/SECURITY SYSTEM ENGINEER NOTES Patient left facility safely with all hospital documents and belongings @ 1330. Patient remained stable, no complaints of pain/discomfort throughout shift, VSS, afebrile, no SOB noted. Breathing even and non-labored on RA. No respiratory or cardiac distress noted. Sensation from all peripheral extremities intact. Patient is able to ambulate steadily, no weakness noted. IV access on R hand removed with catheter intact, placed clean dry dressing and tape on top of site. No s/s of infection, bleeding, infiltration noted. Photos taken of skin impairments and placed on chart. Educated patient regarding discharge instructions, answered all his questions to his satisfaction. Patient verbalized understanding.
== END 2020-04-15 13:30 | disposition home or self-care (01) | DRG 242 ==
LOC: ER 13:17 → TELE 17:41 → ICU 19:57 → TELE 04-10 12:57 → MED 04-13 09:56
PROVIDERS: ADMIT Nurse Practitioner Acute Care; ATTEND Internal Medicine
PROC: 0JH604Z Insertion of Pacemaker, Single Chamber into Chest Subcutaneous Tissue and Fascia, Open Approach (ICD-10-PCS; principal; 2020-04-12)
PROC: 02HK3JZ Insertion of Pacemaker Lead into Right Ventricle, Percutaneous Approach (ICD-10-PCS; 2020-04-12)
DX: I13.0 Hypertensive heart and chronic kidney disease with heart failure and stage 1 through stage 4 chronic kidney disease, or unspecified chronic kidney disease (principal); J96.01 Acute respiratory failure with hypoxia; N17.0 Acute kidney failure with tubular necrosis; I50.23 Acute on chronic systolic (congestive) heart failure; E44.0 Moderate protein-calorie malnutrition; J98.11 Atelectasis; I42.0 Dilated cardiomyopathy; N18.9 Chronic kidney disease, unspecified; E87.6 Hypokalemia; E88.09 Other disorders of plasma-protein metabolism, not elsewhere classified; D63.8 Anemia in other chronic diseases classified elsewhere; E66.9 Obesity, unspecified; Z68.34 Body mass index [BMI] 34.0-34.9, adult; Z95.810 Presence of automatic (implantable) cardiac defibrillator; Z79.82 Long term (current) use of aspirin; E80.6 Other disorders of bilirubin metabolism; I27.21 Secondary pulmonary arterial hypertension; G47.33 Obstructive sleep apnea (adult) (pediatric)
CPT/HCPCS: 36415; 36600; 71045-TC; 75574; 76000-TC; 76770-TC; 78582; 80048-TC; 80053-TC; 80061-TC; 80076-TC; 81000-TC; 82550-TC; 82570-TC; 82728-TC; 82803-TC; 83540-TC; 83605-TC; 83615-TC; 83735-TC; 83880; 83970; 84100-TC; 84155; 84155-TC; 84165; 84300-TC; 84439-TC; 84443-TC; 84484-TC; 85025-TC; 85378-TC; 85730-TC; 86140-TC; 87081-TC; 93307-TC; 93970-TC; 94760-TC; 94799-TC; 97116-TC; 97530-TC; A4217; A9540; A9567; C1722; C9803-CS; G0378; J0360; J0690; J1650; J1940; J2250; J2916; J3490; J7030; J7050; Q9966; Q9967

== ENCOUNTER 2020-09-04 14:10 | Emergency (ER) | payer MEDICARE, BC ==
[~2020-09-04] VITALS: Ht 180.3 cm; Wt 92.5 kg
[~2020-09-04 14:10] MED LIST: ASPI-1169 PO; CARV25TA PO
--- NOTE | 2020-09-04 14:55 | NUR ---
bib son, generalized body aches, ble swelling x 5 days. sent by pmd for efra nelson.
[2020-09-04] MEDS ORDERED: ACETAMINOPHEN ES 500 MG TABLET PO ONE (16:00)
[2020-09-04] MEDS ORDERED: ACETAMINOPHEN ES 500 MG TABLET ONE (16:22)
--- NOTE | 2020-09-04 16:29 | NUR ---
radiology at bedside for for xrays.
[2020-09-04 17:06] LABS: BASOPHILS % (AUTO) 0.5 % (0.0-2.0); EOSINOPHILS % (AUTO) 1.1 % (0.0-6.0); HEMATOCRIT 39 % (39-51); HEMOGLOBIN 12.6 g/dL (13.5-17.5); LYMPHOCYTES # (AUTO) 0.7 /CMM (0.8-4.8); LYMPHOCYTES % (AUTO) 7.4 % (20.0-44.0); MEAN CORPUSCULAR HGB CONC 33 g/dl (31.0-36.0); MEAN CORPUSCULAR VOLUME 95 fL (80-96); MONOCYTES # (AUTO) 1.3 /CMM (0.1-1.30); MONOCYTES % (AUTO) 14.4 % (2.0-12.0); NEUTROPHILS # (AUTO) 6.7 /CMM (1.8-8.9); NEUTROPHILS % (AUTO) 76.6 % (43.0-81.0); PLATELET COUNT (AUTO) 210 /CMM (150-450); WHITE BLOOD COUNT (AUTO) 8.8 K/uL (4.3-11.0)
[2020-09-04 17:47] LABS: CALCIUM, SERUM 9.2 mg/dL (8.5-10.1); CARBON DIOXIDE 29 mmol/L (21-32); CHLORIDE 103 mmol/L (98-107); CREATININE 1.6 mg/dL (0.6-1.3); GLUCOSE 92 mg/dL (74-106); POTASSIUM 4.3 mmol/L (3.5-5.1); SODIUM SERUM 141 mmol/L (136-145); UREA NITROGEN, BLOOD 24 mg/dL (7-18)
[2020-09-04 18:05] LABS: ALANINE AMINOTRANSFERASE 10 U/L (12-78); ALBUMIN 3.3 g/dL (3.4-5.0); ALKALINE PHOSPHATASE 63 U/L (46-116); ASPARTATE AMINOTRANSFERASE 15 U/L (15-37); B-TYPE NATRIURETIC PEPTIDE 4183 PG/ML (0-125); BILIRUBIN,DIRECT 0.1 mg/dL (0.0-0.2); BILIRUBIN,TOTAL 0.5 mg/dL (0.2-1.0); TOTAL PROTEIN, SERUM 8.6 g/dL (6.4-8.2)
[2020-09-04] MEDS ORDERED: KETOROLAC TROMETHAMINE INJ 30 MG/ML VIAL IV ONE (19:00)
[2020-09-04] MEDS ORDERED: KETOROLAC TROMETHAMINE 15 MG/ML VIAL ONE (19:04)
[2020-09-04 20:02] LABS: LIPASE 51 U/L (73-393)
[2020-09-04] MEDS ORDERED: ACET325T53 MC (20:58)
--- NOTE | 2020-09-04 21:29 | NUR ---
IV removed. Catheter intact and site benign. Pressure and 4x4 applied to site. No bleeding noted. Patient discharged to home in stable condition. Written and verbal after care instructions given. Patient verbalizes understanding of instruction. ambulatory with a steady gait noted.
[2020-09-04 21:32] VITALS: BP 134/82
== END 2020-09-04 21:32 | disposition home or self-care (01) ==
LOC: ER 14:20
DX: M25.50 Pain in unspecified joint (principal); I50.9 Heart failure, unspecified; R26.2 Difficulty in walking, not elsewhere classified; Z20.822 Contact with and (suspected) exposure to COVID-19; K57.90 Diverticulosis of intestine, part unspecified, without perforation or abscess without bleeding; K40.20 Bilateral inguinal hernia, without obstruction or gangrene, not specified as recurrent; K42.9 Umbilical hernia without obstruction or gangrene; N40.0 Benign prostatic hyperplasia without lower urinary tract symptoms; Z95.0 Presence of cardiac pacemaker; N28.9 Disorder of kidney and ureter, unspecified; Z79.82 Long term (current) use of aspirin; Z79.899 Other long term (current) drug therapy; R60.0 Localized edema
CPT/HCPCS: 36415; 73030 ×2; 73521; 73564 ×2; 74176; 80048; 80076; 83605; 83690; 83880; 84484; 85025; 87040; 87426; 96374; 99285; J1885; C9803